=== PATIENT | male | born 1995 | race Caucasian/White ===

== ENCOUNTER 2018-04-18 21:27 | Emergency (ER) | payer OTHER ==
[2018-04-18 21:35] VITALS: BP 124/72; PULSE 113; TEMP 98.7; BMI 27.4
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
== END 2018-04-18 22:47 | disposition home or self-care (01) ==
LOC: JERFT 21:27
DX: S00.81XA Abrasion of other part of head, initial encounter (principal); S09.90XA Unspecified injury of head, initial encounter; Y35.891A Legal intervention involving other specified means, law enforcement official injured, initial encounter; Y92.410 Unspecified street and highway as the place of occurrence of the external cause; Y99.0 Civilian activity done for income or pay
CPT/HCPCS: 70450-TC; 70486-TC; 99281-25

== ENCOUNTER 2018-07-31 02:26 | Emergency (ER) | payer OTHER ==
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
[2018-07-31 03:05] VITALS: BP 124/84; PULSE 113; TEMP 97.9; BMI 28.5
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
[2018-07-31] MEDS ORDERED: HIV POST EXPOSURE PROPHYLAXIS KIT PO ONE (03:15)
[2018-07-31] MEDS ORDERED: HIV POST EXPOSURE PROPHYLAXIS KIT NR ONE (03:18)
== END 2018-07-31 04:37 | disposition home or self-care (01) ==
LOC: JER 02:26
DX: Z77.21 Contact with and (suspected) exposure to potentially hazardous body fluids (principal); S60.512A Abrasion of left hand, initial encounter; M79.641 Pain in right hand; M79.89 Other specified soft tissue disorders; Y35.811A Legal intervention involving manhandling, law enforcement official injured, initial encounter; Y93.89 Activity, other specified; Y92.89 Other specified places as the place of occurrence of the external cause; Y99.0 Civilian activity done for income or pay
CPT/HCPCS: 73130-TC-LT-FY; 73130-TC-RT-FY; 99281-25

== ENCOUNTER 2018-09-19 23:33 | Emergency (ER) | payer OTHER ==
[2018-09-20 00:04] VITALS: BP 142/81; PULSE 101; TEMP 97.6; BMI 27.8
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
== END 2018-09-20 01:37 | disposition home or self-care (01) ==
LOC: JER 23:33
DX: M79.671 Pain in right foot (principal); Y35.891A Legal intervention involving other specified means, law enforcement official injured, initial encounter; Y93.89 Activity, other specified; Y92.89 Other specified places as the place of occurrence of the external cause; Y99.0 Civilian activity done for income or pay
CPT/HCPCS: 73610-TC-RT-FY; 73630-TC-RT-FY; 99281-25

== ENCOUNTER 2018-11-08 22:46 | Emergency (ER) | payer OTHER ==
[2018-11-08 22:50] VITALS: BP 133/80; PULSE 86; TEMP 98.6; BMI 29.2
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
== END 2018-11-08 23:52 | disposition home or self-care (01) ==
LOC: JER 22:46
DX: Z77.21 Contact with and (suspected) exposure to potentially hazardous body fluids (principal); Y35.811A Legal intervention involving manhandling, law enforcement official injured, initial encounter; Y93.89 Activity, other specified; Y92.89 Other specified places as the place of occurrence of the external cause; Y99.0 Civilian activity done for income or pay
CPT/HCPCS: 99281-25

== ENCOUNTER 2019-01-03 20:21 | Emergency (ER) | payer OTHER ==
[2019-01-03 20:28] VITALS: BP 140/82; PULSE 100; TEMP 98.5; BMI 27.8
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
== END 2019-01-03 22:18 | disposition home or self-care (01) ==
LOC: JERFT 20:21
DX: S93.401A Sprain of unspecified ligament of right ankle, initial encounter (principal); S20.211A Contusion of right front wall of thorax, initial encounter; Y35.811A Legal intervention involving manhandling, law enforcement official injured, initial encounter; W18.39XA Other fall on same level, initial encounter; Y93.89 Activity, other specified; Y92.89 Other specified places as the place of occurrence of the external cause; Y99.0 Civilian activity done for income or pay
CPT/HCPCS: 71045-TC-FY; 71101-TC-RT-FY; 73610-TC-RT-FY; 99281-25

== ENCOUNTER 2019-09-12 17:04 | Emergency (ER) | payer OTHER ==
[2019-09-12 17:14] VITALS: BP 135/81; PULSE 96; TEMP 98.2; BMI 29.2
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
== END 2019-09-12 18:30 | disposition home or self-care (01) ==
LOC: JER 17:04
DX: S60.511A Abrasion of right hand, initial encounter (principal); H91.91 Unspecified hearing loss, right ear; H92.02 Otalgia, left ear; Y35.891A Legal intervention involving other specified means, law enforcement official injured, initial encounter; V47.5XXA Car driver injured in collision with fixed or stationary object in traffic accident, initial encounter; W22.11XA Striking against or struck by driver side automobile airbag, initial encounter; Y92.414 Local residential or business street as the place of occurrence of the external cause; Y99.0 Civilian activity done for income or pay; Y93.89 Activity, other specified
CPT/HCPCS: 99281-25

== ENCOUNTER 2020-12-09 17:30 | Emergency (ER) | payer OTHER ==
[2020-12-09 17:36] VITALS: BP 123/85; PULSE 95; TEMP 98.1; BMI 29.2
[2020-12-09] MEDS ORDERED: IBUPROFEN 400 MG TABLET (FP) PO ONE ×2 (17:38→17:47)
== END 2020-12-09 18:30 | disposition home or self-care (01) ==
LOC: FER 17:30
DX: S93.401A Sprain of unspecified ligament of right ankle, initial encounter (principal); M25.571 Pain in right ankle and joints of right foot
CPT/HCPCS: 73610-TC-RT-FY; 73630-TC-RT-FY; 99284-25

== ENCOUNTER 2021-05-27 23:48 | Emergency (ER) | payer OTHER ==
[2021-05-28 00:01] VITALS: BP 136/87; PULSE 70; TEMP 98.1; BMI 28.5
[2021-05-28] MEDS ORDERED: IBUPROFEN 600 MG TABLET (FP) PO ONE ×2 (00:08→00:13)
== END 2021-05-28 00:19 | disposition home or self-care (01) ==
LOC: FER 23:48
DX: M54.5 Low back pain (principal); V49.9XXA Car occupant (driver) (passenger) injured in unspecified traffic accident, initial encounter
CPT/HCPCS: 99283-25

== ENCOUNTER 2021-08-03 20:04 | Emergency (ER) | payer OTHER ==
[2021-08-03 20:13] VITALS: BMI 28.5
[2021-08-03 20:26] VITALS: BP 150/85; PULSE 87; TEMP 98.7
== END 2021-08-03 20:45 | disposition home or self-care (01) ==
LOC: FER 20:04
DX: S80.02XA Contusion of left knee, initial encounter (principal); S96.912A Strain of unspecified muscle and tendon at ankle and foot level, left foot, initial encounter; Y35.811A Legal intervention involving manhandling, law enforcement official injured, initial encounter
CPT/HCPCS: 99281-25

== ENCOUNTER 2021-10-22 20:30 | Emergency (ER) | payer OTHER ==
[2021-10-22] MEDS ORDERED: DIPHTH,PERTUSS(ACELL),TET 0.5 ML DISP.SYRIN IM ONE ×2 (21:22→21:25)
[2021-10-22 21:30] VITALS: PULSE 79; TEMP 98
[2021-10-22 21:36] VITALS: BP 149/80; BMI 28.5
== END 2021-10-22 21:36 | disposition home or self-care (01) ==
LOC: FER 20:30
PROC: 3E0234Z Introduction of Serum, Toxoid and Vaccine into Muscle, Percutaneous Approach (ICD-10-PCS; principal; 2021-10-22)
DX: S60.512A Abrasion of left hand, initial encounter (principal)
CPT/HCPCS: 90715; 99283-25

== ENCOUNTER 2022-03-03 19:59 | Emergency (ER) | payer OTHER ==
[2022-03-03 20:12] VITALS: BP 134/79; PULSE 76; TEMP 98.8; BMI 28.5
[2022-03-03] MEDS ORDERED: KETOROLAC TROMETHAMINE 60 MG/2 ML VIAL IM ONE (20:12)
[2022-03-03] MEDS ORDERED: predniSONE 20 MG TABLET (UD) PO ONE (20:12)
[2022-03-03] MEDS ORDERED: KETOROLAC TROMETHAMINE 60 MG/2 ML VIAL ONE (20:15)
[2022-03-03] MEDS ORDERED: predniSONE 20 MG TABLET (UD) ONE (20:15)
== END 2022-03-03 21:24 | disposition home or self-care (01) ==
LOC: FER 19:59
PROC: 3E0233Z Introduction of Anti-inflammatory into Muscle, Percutaneous Approach (ICD-10-PCS; principal; 2022-03-03)
DX: S39.012A Strain of muscle, fascia and tendon of lower back, initial encounter (principal); X50.0XXA Overexertion from strenuous movement or load, initial encounter
CPT/HCPCS: 72070-TC-FY; 99284-25

== ENCOUNTER 2022-06-14 20:53 | Emergency (ER) | payer OTHER ==
[2022-06-14 21:08] VITALS: BP 131/88; PULSE 96; RESP 18; TEMP 99; BMI 28.5
== END 2022-06-14 21:10 | disposition home or self-care (01) ==
LOC: FER 20:53
DX: S60.351A Superficial foreign body of right thumb, initial encounter (principal)
CPT/HCPCS: 99282-25

== ENCOUNTER 2023-05-07 00:46 | Emergency (ER) | payer OTHER ==
[2023-05-07] MEDS ORDERED: IBUPROFEN 600 MG TABLET (FP) PO ONE ×2 (00:49→00:53)
[2023-05-07 00:52] VITALS: BP 125/83; PULSE 108; RESP 16; TEMP 99.2; BMI 29.9
== END 2023-05-07 01:34 | disposition home or self-care (01) ==
LOC: FER 00:46
DX: S93.402A Sprain of unspecified ligament of left ankle, initial encounter (principal); M25.572 Pain in left ankle and joints of left foot; X50.1XXA Overexertion from prolonged static or awkward postures, initial encounter
CPT/HCPCS: 73610-TC-LT-FY; 73630-TC-LT; 99283-25

== ENCOUNTER 2024-01-03 23:04 | Emergency (ER) | payer OTHER ==
[2024-01-03 23:09] VITALS: BP 134/84; PULSE 81; RESP 17; TEMP 98.5; BMI 29.9
[2024-01-04] MEDS: HEPATITIS B IMMUNE GLOBULIN 5 ML VIAL IM ONE (01:30)
[2024-01-04 02:02] LABS: BASO % 0.5 % (0-2.0); EOS % 1.5 % (0-4.5); HEMATOCRIT 50.9 % (35.4-49); HEMOGLOBIN 17.6 GM/dL (11.7-16.9); LYMPH % 25.1 % (8-40); MCH 30.4 pg (25.7-33.7); MCHC 34.6 g/dl (32.0-35.9); MEAN CELL VOLUME 88.1 fl (80-96); MONO % 8.9 % (3.8-10.2); PLATELET COUNT 228 10^3/uL (134-434); RBC 5.78 M/mm3 (4.00-5.60); RDW 13.1 % (11.9-15.9); WHITE BLOOD COUNT 10.4 K/mm3 (4.0-10.0)
[2024-01-04 02:14] LABS: POTASSIUM 4.1 mmol/L (3.5-5.1)
[2024-01-04 02:20] LABS: ALBUMIN 4.1 g/dl (3.4-5.0); BLOOD UREA NITROGEN 18.6 mg/dL (7-18); CALCIUM 9.3 mg/dL (8.5-10.1)
[2024-01-04 02:24] LABS: CREATININE 1.1 mg/dL (0.55-1.3)
[2024-01-04 02:25] LABS: BILIRUBIN,TOTAL 0.7 mg/dL (0.2-1); TOT PROT 7.8 g/dl (6.4-8.2)
== END 2024-01-04 02:23 | disposition home or self-care (01) ==
LOC: FER 23:04
PROC: 3E0234Z Introduction of Serum, Toxoid and Vaccine into Muscle, Percutaneous Approach (ICD-10-PCS; principal; 2024-01-04)
DX: Z23 Encounter for immunization (principal)
CPT/HCPCS: 36415; 80053; 82977; 85025; 86704; 86803; 87517; 99284-25

== ENCOUNTER 2024-04-20 22:41 | Emergency (ER) | payer OTHER ==
[2024-04-20 22:55] VITALS: BP 145/86; PULSE 97; RESP 18; TEMP 98.2; BMI 29.9
== END 2024-04-20 23:10 | disposition home or self-care (01) ==
LOC: FER 22:41
DX: S46.212A Strain of muscle, fascia and tendon of other parts of biceps, left arm, initial encounter (principal); Y35.811A Legal intervention involving manhandling, law enforcement official injured, initial encounter
CPT/HCPCS: 99283-25

== ENCOUNTER 2024-05-22 14:45 | Emergency (ER) | payer OTHER ==
[2024-05-22 14:55] VITALS: BP 147/78; PULSE 91; RESP 20; TEMP 98.4; BMI 32.1
[2024-05-22] MEDS ORDERED: predniSONE 20 MG TABLET (UD) ONE (14:57)
[2024-05-22] MEDS: predniSONE 20 MG TABLET (UD) PO ONE (14:59)
== END 2024-05-22 15:21 | disposition home or self-care (01) ==
LOC: FER 14:45
DX: R21 Rash and other nonspecific skin eruption (principal); L30.9 Dermatitis, unspecified; L29.9 Pruritus, unspecified
CPT/HCPCS: 99283-25